=== PATIENT | female | born 1995 | race Caucasian/White ===

== ENCOUNTER 2018-04-19 20:05 | Emergency (ER) | payer MEDICAID, OTHER ==
[2018-04-19 20:05] VITALS: BMI 25.9
[2018-04-19 20:18] VITALS: TEMP 99.8
[2018-04-19 20:43] LABS: SQUAMOUS EPITHIAL 2 /hpf (0-5); URINE BILIRUBIN NEGATIVE (NEGATIVE); URINE BLOOD 1+ (NEGATIVE); URINE CLARITY Clear (Clear); URINE COLOR Yellow (YELLOW); URINE GLUCOSE (UA) NORMAL (Normal); URINE LEUKOCYTE ESTERASE NEG Leu/uL (Negative); URINE PROTEIN NEGATIVE (NEGATIVE); URINE UROBILINOGEN NORMAL mg/dL (0.2-1.0)
--- NOTE | 2018-04-19 21:13 | C.PDOC ---
History Of Present Illness 22 y/o F c no PMHx p/w subject fever, sore throat, mild cough, body aches when walking, bilateral lower back pain x 2 days. Denies dysuria, vomiting, dyspnea, stiff neck, abdominal pain. Time Seen by Provider: 04/19/18 20:37 Chief Complaint (Nursing): Fever Past Medical History Vital Signs: Last Vital Signs Temp 99.8 F H 04/19/18 20:14 Pulse 110 H 04/19/18 20:14 Resp 20 04/19/18 20:14 BP 121/73 04/19/18 20:14 Pulse Ox 98 04/19/18 20:14 - Medical History PMH: Asthma, Chronic Kidney Disease Surgical History: Appendectomy, Tonsillectomy Family History: States: Unknown Family Hx - Social History Hx Tobacco Use: No Hx Alcohol Use: No Hx Substance Use: Yes (weeds) - Immunization History Hx Tetanus Toxoid Vaccination: No Hx Influenza Vaccination: Yes Hx Pneumococcal Vaccination: No Review Of Systems Except As Marked, All Systems Reviewed And Found Negative. Cardiovascular: Negative for: Chest Pain Respiratory: Negative for: Shortness of Breath Physical Exam - Physical Exam Additional Physical Exam Comments: Constitutional: No acute distress. Head: Normocephalic. Atraumatic. Eyes: PERRL. ENT: Pharyngeal erythema, no exudates. Neck: Supple. Cardiovascular: Tachycardic Chest: No tenderness. Respiratory: Clear to auscultation bilaterally. GI: Soft. Nontender. Nondistended. Back: No CVA tenderness. Musculoskeletal: No tenderness or swelling of extremities. Skin: No rash. Neurologic: Alert, no focal deficit. ED Course And Treatment O2 Sat by Pulse Oximetry: 98 Medical Decision Making Medical Decision Making: Patient did not wish for any blood work to be drawn. Influenza positive. Tamiflu administered and prescribed. Discharged home, f/u PMD, return to ED for worsening dyspnea, lethargy, vomiting, or any other problem. Disposition - Disposition Referrals: [facility] [Outside] Disposition: HOME/ ROUTINE Disposition Time: 22:06 Condition: STABLE Prescriptions: Ibuprofen [Motrin] 600 mg PO Q6 #25 tab Ondansetron ODT [Zofran ODT] 4 mg PO Q8 #12 odt Oseltamivir Phosphate [Tamiflu] 1 cap PO BID #9 capsule Instructions: Flu, Adult (DC) Forms: [facility] (Finnish), Work Excuse - Clinical Impression Clinical Impression: Influenza
[2018-04-19 21:59] LABS: INFLUENZA A B POS FOR INFLUENZA A (NEGATIVE)
[2018-04-19 22:16] VITALS: BP 120/70; PULSE 80; RESP 14; O2SAT 99
== END 2018-04-19 22:15 | disposition home or self-care (01) ==
LOC: C.ER 20:05
DX: J11.1 Influenza due to unidentified influenza virus with other respiratory manifestations (principal)